=== PATIENT | female | born 1985 | race Caucasian/White ===

== ENCOUNTER 2017-01-31 03:40 | Emergency (ER) ==
--- NOTE | 2017-01-31 04:57 | PROVIDER DOCUMENTATION ---
HPI-Female /OB/Breast - General Chief Complaint: Female Stated Complaint: BLEEDING, ABD PAIN, BACK PAIN Time Seen by Provider: 01/31/17 04:20 Allergies/Adverse Reactions: Patient Allergies Allergy/AdvReac Type Severity Reaction Status Date / Time iodine Allergy Severe ANAPHYLAXIS Verified 03/04/15 11:48 shellfish , citrius fruits Allergy ANAPHYLAXIS Uncoded 01/31/17 04:01 Home Medications: Home Medication List Medication Instructions Recorded Confirmed Last Taken Type Ciprofloxacin HCl [Cipro] 500 mg PO BID #10 tablet 01/31/17 Unknown Rx Tramadol [Ultram] 50 mg PO TID #30 tablet 01/31/17 Unknown Rx - History of Present Illness-Female /OB Nature of Presenting Problem: HAVING FREQUENT EPISODES OF VAG BLEEDING SINCE [age] ASSOC W/PELVIC CRAMPING / PT /A0..LAST TIME HAD SEX 10 WKIS AGO ..LAST PAPS 2016=OK Does patient report she is ?: No Location of complaint: reports: suprapubic Radiation: reports: suprapubic Quality of Pain: reports: cramping Severity in ED: reports: moderate Onset/Duration: reports: last week Timing: reports: intermittent, changing over time Vaginal Symptoms: reports: abnormal bleeding. denies: discharge, foul odor, pain with intercourse, passing clots/tissue Vaginal Bleeding Amount: Small/Light Pads/Day: 5 Urinary Symptoms: reports: frequency, urgency Review of Systems - Adult - REVIEW OF SYSTEMS - ADULT Constitutional: reports: see HPI All Other Systems: Reviewed and Negative Past History - Adult - PAST MEDICAL HISTORY-ADULT Review of Records: reports: Old Records Reviewed, Nursing Assessment Review, Medications Reviewed, Social history reviewed & non-contributory. Major Childhood Illnesses: reports: denies history Cardiovascular: reports: denies history, cardiac disease Respiratory: reports: denies history Gastrointestinal: reports: denies history Obstetrical/Gynecological: reports: other (PCOS) Genitourinary: reports: denies history Musculoskeletal: reports: denies history Neurological: reports: denies history Psychiatric: reports: anxiety Endocrine/Immune: reports: denies history Other Conditions: reports: denies history - PRIOR SURGERIES/PROCEDURES Surgical/Procedure History: reports: none - IMMUNIZATION STATUS Childhood Immunizations: See Nurse Assessment Flu Vaccine: See Nurse Assessment - FAMILY HISTORY Family History: reviewed, not pertinent - SOCIAL HISTORY Smoking: denies Substance Use: none presently/history of abuse Alcohol Use Frequency: never Living Situation: family Physical Exam-General - PHYSICAL EXAM-ADULT Initial Vital Signs Reviewed: Yes - CONSTITUTIONAL General Appearance: appears well, alert, no apparent distress - EYES Eyes: PERRL/EOMI, pink conjunctivae - HEAD, EARS, NOSE, MOUTH & THROAT HENMT: normocephalic/atraumatic, moist mucous membranes, normal ENT inspection - NECK Neck: non-tender, full range of motion, supple - RESPIRATORY Respiratory: chest non-tender, lungs clear, normal breath sounds, no pleuratic chest pain, no respiratory distress, no accessory muscle use - CARDIOVASCULAR Cardiovascular: normal peripheral pulses, regular rate, rhythm, no edema, no gallop - CHEST (BREASTS) Chest/Breast: normal breast inspection - GASTROINTESTINAL (ABDOMEN) Abdominal Exam: normal bowel sounds, soft, tenderness (SUPRAPUBIC). negative: distended, rigid, McBurney's point tenderness, Estrada's sign - MUSCULOSKELETAL Back Exam: normal inspection, no CVA tenderness, no vertebral tenderness Extremity: normal range of motion, non-tender, normal gait, normal inspection, no pedal edema - SKIN Integumentary: normal color, normal turgor, warm/dry - NEUROLOGIC Neurologic: inspector finishing II-XII nml as tested, grossly normal, no motor/sensory deficits - PSYCHIATRIC Psych/Mental Status: normal mood/affect, oriented x 3 Departure - Departure Time of Disposition Order: 05:45 DIAGNOSIS: Pelvic pain, DUB (dysfunctional uterine bleeding), UTI (urinary tract infection ) Disposition: HOME 01 Certified Medical Emergency: Urgent Condition: Stable Additional Instructions: ED Follow Up Instructions: You have been treated by a care provider in the Emergency Department. These instructions are being provided to you so you can have an understanding of how to care for yourself upon discharge. Upon discharge from the Emergency Department, you are responsible for making arrangements for follow-up care by a physician of your choice. Take all prescribed medications as directed. Return to the Emergency Department immediately for any new or worsening symptoms. You may call the Physician Referral phone number at [phone] to obtain a list of Physicians who are taking new patients. Prescriptions: Ciprofloxacin HCl [Cipro] 500 mg PO BID #10 tablet Tramadol [Ultram] 50 mg PO TID #30 tablet Referrals: None,PCP [Primary Care Provider] - Que John MD [STAFF PHYSICIAN] -
[2017-01-31 05:04] LABS: URINE CULTURE NEEDED? NO; URINE MICRO REVIEW NEEDED? NO; URINE SOURCE CLEAN CATCH
[2017-01-31 05:04] LABS: MANUAL DIFF NEEDED? NO
[2017-01-31 05:06] LABS: BASO% 0.5 % (0.0-0.8); EOS# 0.13 X1000 (0.0-0.7); EOS% 1.3 % (0.0-10.0); HEMATOCRIT 43.9 % (37.0-47.0); HEMOGLOBIN 14.8 g/dL (12.0-16.0); IMM GRAN# 0.02 X1000 (0.0-0.04); IMM GRAN% 0.2 % (0.0-0.5); LYMPH# 4.04 X1000 (1.2-3.4); LYMPH% 40.6 % (20.5-51.1); MCH 28.6 PG (27-31); MCHC 33.7 g/dL (33-37); MCV 84.9 FL (81-99); MONO# 0.68 X1000 (0.11-0.59); MONO% 6.8 % (1.7-9.3); MPV 10.4 FL (7.4-10.4); NEUT% 50.6 % (42.2-75.2); PLT 425 X1000 (130-400); RBC 5.17 XMIL (4.2-5.4)
[2017-01-31 05:08] LABS: BILIRUBIN URINE NEGATIVE (NEGATIVE); BLOOD URINE MODERATE (NEGATIVE); COLOR YELLOW; GLUCOSE URINE NEGATIVE (NEGATIVE); LEUKOCYTES URINE NEGATIVE (NEGATIVE); NITRITE URINE NEGATIVE (NEGATIVE); PH URINE 5.5; PROTEIN URINE NEGATIVE (NEGATIVE); SP GRAVITY URINE 1.018; TURBIDITY URINE CLEAR (CLEAR); UR EPITHELIAL CELLS <10 /HPF (<10); URINE BACTERIA NEGATIVE /HPF; URINE RBC TNTC /HPF (<10); URINE WBC <10 /HPF (<10); UROBILINOGEN URINE NORMAL (NORMAL)
[2017-01-31 05:24] LABS: AGAP 13; ALBUMIN 4.5 g/dL (3.5-5.0); ALKALINE PHOSPHATASE 73 U/L (32-104); BUN 8 mg/dL (8-22); CALCIUM 9.5 mg/dL (8.8-10.2); CHLORIDE 99 mmol/L (98-107); COSMO 276; GOT 28 U/L (10-30); GPT 54 U/L (10-36); POTASSIUM 3.8 mmol/L (3.5-5.1); SODIUM 139 mmol/L (136-145); TCO2 27 mmol/L (25-35); TOTAL BILIRUBIN 0.26 mg/dL (0.20-1.00); TOTAL PROTEIN 7.6 g/dL (6.3-8.3)
[2017-01-31] MEDS ORDERED: XYLOCAINE-MPF 1% INJ ONE (05:44)
[2017-01-31] MEDS ORDERED: ROCEPHIN IM ONE (05:44)
[2017-01-31] MEDS ORDERED: PERCOCET-10 PO ONE (05:44)
[2017-01-31 06:15] VITALS: BP 160/83
== END 2017-01-31 06:40 | disposition home or self-care (01) ==
LOC: ED 03:40
DX: N93.8 Other specified abnormal uterine and vaginal bleeding (principal); N39.0 Urinary tract infection, site not specified; R10.2 Pelvic and perineal pain; R10.30 Lower abdominal pain, unspecified; R35.0 Frequency of micturition; R39.15 Urgency of urination; E28.2 Polycystic ovarian syndrome; F41.9 Anxiety disorder, unspecified
CPT/HCPCS: 36415; 80053; 81001; 84702; 85025; 96372; J0696